=== PATIENT | male | born 1935 | race Caucasian/White ===

== ENCOUNTER 2019-08-21 06:29 | Inpatient (IN) | payer MEDICARE ==
[2019-08-18 13:54] LABS: BASOPHILS # (AUTO) 0.1 (0.0-0.1); EOSINOPHILS # (AUTO) 0.2 (0.0-0.4); EOSINOPHILS % 2.7 % (0.0-6.0); HEMATOCRIT 45.8 % (38.2-49.6); HEMOGLOBIN 14.6 g/dL (14.0-18.0); LYMPHOCYTES # (AUTO) 0.4 (1.0-3.2); LYMPHOCYTES % 7.4 % (18.0-39.1); MEAN CORPUSCULAR HEMOGLOBIN 33.1 pg (28-32); MEAN CORPUSCULAR HGB CONC 31.9 g/dL (31-35); MEAN CORPUSCULAR VOLUME 103.9 fL (81-99); MONOCYTES # (AUTO) 0.6 (0.2-0.8); MONOCYTES % 10.7 % (4.4-11.3); NEUTROPHILS # (AUTO) 4.7 (2.1-6.9); PLATELET COUNT 258 x10e3/uL (140-360); RED BLOOD COUNT 4.41 x10e6/uL (4.3-5.7)
--- NOTE | 2019-08-18 14:09 | Diagnostic Imaging Report ---
EXAMINATION: CHEST 2 VIEWS INDICATION: Pre-operative COMPARISON: None FINDINGS: LINES/TUBES:Left chest pacer. LUNGS:The lungs are mildly hyperinflated. No focal consolidation or pulmonary edema. PLEURA:No pleural effusion or pneumothorax. MEDIASTINUM:Marked cardiomegaly. 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 BONES/SOFT TISSUES:No acute osseous injury. Sternotomy wires intact. ABDOMEN:No free air under the diaphragm. IMPRESSION: No focal pneumonia or pulmonary edema. Cardiomegaly. Signed by: Norman Cortes MD on 08/18/2019 2:07 PM
[2019-08-18 14:13] LABS: ANION GAP 19.1 mmol/L (8-16); CALCIUM 9.7 mg/dL (8.4-10.2); CREATININE, SERUM 1.45 mg/dL (0.72-1.25); POTASSIUM 4.1 mmol/L (3.5-5.1)
[2019-08-21] VITALS (9 sets, daily range): BP systolic 99–116; BP diastolic 68–83
[~2019-08-21] VITALS: Ht 175.3 cm; Wt 70.3 kg
[~2019-08-21 06:29] MED LIST: EZETIMIBE-SIMV1 EAC3 PO; FINASTERIDE5 MG PO; FUROSEMIDE40 MG PO; GABAPENTIN100 MG PO; LEVOTHYROXINE112 MCG PO; MELOXICAM7.5 MG PO; METOLAZONE5 MG PO; METOPROLOL SUCC25 MG PO; POTASSIUM CHLO10 ME1 PO; PREVACID15 MG PO; VALTREX500 MG PO; XARELTO20 MG PO
--- OUTSIDE RECORDS SUMMARY | 2019-08-21 06:33 | XMS REPORT ---
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 Allergies, Adverse Reactions, Alerts This patient has no known allergies or adverse reactions. Medications This patient has no known medications. Results Test Description Test Time Test Comments Text Results Atomic Results Result Comments CHEST 2 VIEWS 2019-08-18 14:06:00 [place] [address] Patient Name: RADU MITCHELL MR #: [id number] : 1935 Age/Sex: 84/M Req #: [id number] Adm Physician: Ordered by: ILDA ULRICH MD Report #: [id number] Location: OR Room/Bed: Procedure: [id number] DX/CHEST 2 VIEWS Exam Date: 08/18/19 Exam Time: 1320 REPORT STATUS: Signed EXAMINATION: CHEST 2 VIEWS INDICATION: Pre-operative COMPARISON: None FINDINGS: LINES/TUBES:Left chest pacer. LUNGS:The lungs are mildly hyperinflated. No focal consolidation or pulmonary edema. PLEURA:No pleural effusion or pneumothorax. MEDIASTINUM:Marked cardiomegaly. 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 BONES/SOFT TISSUES:No acute osseous injury. Sternotomy wires intact. ABDOMEN:No free air under the diaphragm. IMPRESSION: No focal pneumonia or pulmonary edema. Cardiomegaly. Signed by: Nafisa Cortes MD on 08/18/2019 2:07 PM Dictated By: NAFISA CORTES MD 06 Transcribed By: MAXIMO on 08/18/191406 COPY TO: ILDA ULRICH MD
[2019-08-21] MEDS ORDERED: CEFTRIAXONE SOD 1 GM/NS 50 ML 50 ML IV ONE (07:51)
[2019-08-21] MEDS ORDERED: LIDOCAINE JELLY 2% 10ML URO-JET ONE (10:05)
--- NOTE | 2019-08-21 13:49 | Operative Report ---
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 OPERATIVE PROCEDURE PERFORMED: Cystoscopy with bladder biopsy. ANESTHESIA: General anesthesia. ESTIMATED BLOOD LOSS: Minimal. INDICATIONS: Mr. Daniele Boggs is an 84-year-old gentleman with a long history of TCC of the bladder and hematuria. He now presents for definitive management of this problem. PROCEDURE IN DETAIL: The patient was brought into the operating room and placed in supine position. After administration of general anesthesia, he was placed in dorsal lithotomy position and prepped and draped in the usual sterile fashion. Cystourethroscopy was performed using 22-Pu[place]ican cystoscope. The anterior and posterior urethra were noted to be normal. There was mild narrowing noted in the proximal bulbar urethra. The prostate revealed evidence of trilobar hyperplasia. The bladder was entered with mild difficulty. Upon entrance into the bladder, there was moderate clot noted approximately 50 mL total. This was irrigated with an Ellik evacuator. Visualization of the bladder mucosa was then possible. The patient was noted to have grade 2 to 3 trabeculations with cellules and diverticula noted throughout. There was moderate erythema and erythematous patches noted on the left lateral wall. There was also some fuzzy material with oozing noted in the region of the bladder neck also on the left side. There were no obvious lesions noted on the right side. The ureteral orifices were in normal anatomical position, though narrowed and produce largely clear efflux. A cold cup bladder biopsy forceps were used to obtain biopsies from the left lateral wall of the bladder neck. These were sent separately to pathology for microscopic analysis. The biopsy sites were fulgurated using the Bugbee electrode and the other small erythematous patches were also Bugbee'd. There was no gross bleeding noted at the end of the procedure. The bladder was left full and the cystoscope and sheath were removed. An 18-Pu[place]ican catheter was placed in a retrograde fashion and the balloon inflated with 10 mL of sterile water. The urinary efflux was blood- tinged. He was returned to supine position and anesthesia was reversed. He was transferred to bed and taken to the postanesthesia care unit in good condition. Of note, the needle and instrument count were correct at the conclusion of the case. MD MARIA E Pineda/RICHARD /[id number] MTDLeanna
[2019-08-21] MEDS ORDERED: PROPOFOL IV EMULSION 10 MG/ML 20 ML VIAL ONE (14:30)
[2019-08-21] MEDS ORDERED: ONDANSETRON HCL INJ 2MG/ML 2ML 2 MG/ML VIAL ONE (14:30)
[2019-08-21] MEDS ORDERED: VASOPRESSIN INJ 20 UNIT/ML VIAL ONE (14:30)
[2019-08-21] MEDS ORDERED: LIDOCAINE HCL 2% LOCAL INJ 5 ML SDV VIAL INJ ONE (14:30)
[2019-08-21] MEDS ORDERED: NALOXONE HCL INJ 0.4 MG/ML AMP ONE (14:30)
[2019-08-21] MEDS ORDERED: PHENYLEPHRINE HCL 1% 10 MG/ML VIAL ONE (14:30)
[2019-08-21] MEDS ORDERED: ETOMIDATE 2 MG/ML 10 ML INJ IV ONE (14:30)
[2019-08-21] MEDS ORDERED: SEVOFLURANE INHAL SOLN 250 ML PEN BTL ONE (14:30)
--- NOTE | 2019-08-21 19:20 | NUR ---
Bedside report received from Dayana Varghese RN. Care plan reviewed, no family present. Pt reports no pain or discomfort, no signs of distress noted. 2L n/c on pt. Crespo to gravity with noted hematuria post cystoscopy&biopsy.
[2019-08-21] MEDS ORDERED: FENTANYL CITRATE/PF 100MCG/2 ML INJ ONE (19:36)
--- NOTE | 2019-08-21 21:00 | NUR ---
Dr. Cohen's called and request pt status update. Reported hematuria, respiratory status, and vital signs. New order received to Scot thomas at 0600 on 08/22/2019.
[2019-08-22] VITALS (15 sets, daily range): BP systolic 95–109; BP diastolic 62–82
[2019-08-22 05:20] LABS: BASOPHILS # (AUTO) 0.1 (0.0-0.1); BASOPHILS % 0.7 % (0.0-1.0); EOSINOPHILS # (AUTO) 0.2 (0.0-0.4); EOSINOPHILS % 2.5 % (0.0-6.0); HEMATOCRIT 42.7 % (38.2-49.6); HEMOGLOBIN 13.6 g/dL (14.0-18.0); LYMPHOCYTES # (AUTO) 0.4 (1.0-3.2); LYMPHOCYTES % 5.1 % (18.0-39.1); MEAN CORPUSCULAR HEMOGLOBIN 32.9 pg (28-32); MEAN CORPUSCULAR HGB CONC 31.9 g/dL (31-35); MEAN CORPUSCULAR VOLUME 103.1 fL (81-99); NEUTROPHILS # (AUTO) 6.8 (2.1-6.9); NEUTROPHILS % 79.3 % (38.7-80.0); PLATELET COUNT 214 x10e3/uL (140-360); RED BLOOD COUNT 4.14 x10e6/uL (4.3-5.7); RED CELL DISTRIBUTION WIDTH 19.1 % (11.7-14.4)
[2019-08-22 05:39] LABS: ANION GAP 16.8 mmol/L (8-16); CALCIUM 8.9 mg/dL (8.4-10.2); CREATININE, SERUM 1.25 mg/dL (0.72-1.25); POTASSIUM 3.8 mmol/L (3.5-5.1)
[2019-08-22] MEDS ORDERED: LEVOTHYROXINE SODIUM 125 MCG TAB PO SCH (06:00)
--- NOTE | 2019-08-22 06:10 | NUR ---
Crespo catheter removed at this time per 's order. Pt then voided about 10ml into urinal. Pt teaching provided that discomfort during urination should resolve in the next few days but to notify his MD if it does not resolve within 3 days.
--- NOTE | 2019-08-22 06:40 | NUR ---
's present and assessing the pt. Pt OOB to chair with MD present. O2 discontinued. 's stated likely to d/c today if pt does well off of O2.
[2019-08-22] MEDS ORDERED: PANTOPRAZOLE SOD 40 MG TABEC PO SCH (07:30)
[2019-08-22] MEDS ORDERED: POTASSIUM CHLORIDE 10MEQ EA PO SCH (09:00)
[2019-08-22] MEDS ORDERED: GABAPENTIN 100 MG CAP PO SCH (09:00)
[2019-08-22] MEDS ORDERED: MELOXICAM 7.5 MG TAB PO SCH (09:00)
[2019-08-22] MEDS ORDERED: FUROSEMIDE 40 MG TAB PO SCH (09:00)
[2019-08-22] MEDS ORDERED: FINASTERIDE 5 MG TAB PO SCH (09:00)
[2019-08-22] MEDS ORDERED: METOPROLOL SUCCINATE 25 MG TAB XL PO SCH (09:00)
[2019-08-22] MEDS ORDERED: METOLAZONE 5 MG TAB PO SCH (09:00)
[2019-08-22] MEDS ORDERED: LEVOTHYROXINE SODIUM 112 MCG TAB PO SCH (09:00)
[2019-08-22] MEDS ORDERED: VALACYCLOVIR HCL 500 MG TAB PO SCH (09:00)
--- NOTE | 2019-08-22 14:37 | NUR ---
bladder [id number]
--- NOTE | 2019-08-22 15:51 | NUR ---
spoke with Dr. Cameron, discharge patient home and to f/u with md 1-2 weeks. called and notified patients daughter Kiera. patient to have taxi transport him home and daughter confirmed she will meet him at home when he arrives. pt alert and oriented x3 pt called taxi service himself.
--- NOTE | 2019-08-22 17:42 | NUR ---
patient left via [place] with all his belongings. i called and spoke with Keira vasquez daughter. she is aware patient is on his way home in taxi at this time. all discharge paperwork given to patient. pt verbalized understanding of his discharge orders. p.iv removed from right forearm/wrist area.
== END 2019-08-22 17:45 | disposition home or self-care (01) | DRG 670 ==
LOC: OR 06:29 → PACU V 11:39 → ICU 13:09
PROVIDERS: ADMIT Urology; ATTEND Urology
PROC: 0TBC8ZX Excision of Bladder Neck, Via Natural or Artificial Opening Endoscopic, Diagnostic (ICD-10-PCS; principal; 2019-08-21 09:44)
DX: C67.5 Malignant neoplasm of bladder neck (principal); R31.9 Hematuria, unspecified; R06.81 Apnea, not elsewhere classified; Z85.46 Personal history of malignant neoplasm of prostate; Z85.51 Personal history of malignant neoplasm of bladder; E03.9 Hypothyroidism, unspecified; I10 Essential (primary) hypertension; I48.91 Unspecified atrial fibrillation; I25.10 Atherosclerotic heart disease of native coronary artery without angina pectoris; I25.2 Old myocardial infarction; Z95.1 Presence of aortocoronary bypass graft; Z95.818 Presence of other cardiac implants and grafts; Z01.810 Encounter for preprocedural cardiovascular examination; Z01.812 Encounter for preprocedural laboratory examination; Z01.811 Encounter for preprocedural respiratory examination
CPT/HCPCS: 36415; 71046; 80048; 85025; 88305; 93005; 94660; J0696; J2001; J2310; J2370; J2405; J3010